=== PATIENT | male | born 1970 | race Caucasian/White ===

== ENCOUNTER → 2019-08-15 | Outpatient (CLI) | payer BC ==
[~2019-08-15] MED LIST: CRESTOR5 MG PO; LIORESAL 1010 MG/TAB PO; LYRICA 25MG CAP25 MG PO; PERCOCET 325 MG1 TA2 PO; ZETIA 10MG TAB10 MG PO
== END ==
LOC: COL.RAD 10:03
DX: M47.816 Spondylosis without myelopathy or radiculopathy, lumbar region (principal)

== ENCOUNTER → 2019-12-05 | Outpatient (CLI) | payer BC | LOC: ZCOL.LAB 15:40 | DX: U07.1 COVID-19 (principal) ==

== ENCOUNTER → 2021-11-15 | Outpatient (CLI) | payer OTHER | LOC: MHCPAIN 09:45 | DX: M54.2 Cervicalgia (principal); M54.6 Pain in thoracic spine; M54.50 Low back pain, unspecified; M25.50 Pain in unspecified joint; M79.18 Myalgia, other site; G83.10 Monoplegia of lower limb affecting unspecified side | CPT/HCPCS: G0463 ==

== ENCOUNTER → 2021-12-20 | Outpatient (CLI) | payer OTHER | LOC: MHCPAIN 10:21 | DX: M54.2 Cervicalgia (principal); M79.18 Myalgia, other site; M54.6 Pain in thoracic spine; M54.50 Low back pain, unspecified; G83.10 Monoplegia of lower limb affecting unspecified side | CPT/HCPCS: G0463 ==